=== PATIENT | female | born 1945 | race Caucasian/White ===

== ENCOUNTER 2017-07-17 20:00 | Emergency (ER) | payer OTHER ==
[~2017-07-17] VITALS: Ht 160 cm; Wt 81.7 kg
--- NOTE | ~2017-07-17 | EKG ---
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 : 1945 Requested By: Keke Arango Order Number: [id number] MD: Xavier Espinoza Measurements Intervals [place] Rate: 56 P: 14 PA: 120 QRS: 16 QRSD: 109 T: 63 QT: 533 QTc: 515 Interpretive Statements Sinus rhythm Abnormal R-wave progression, early transition Prolonged QT interval Compared to ECG 07/24/2013 09:50:04 T-wave abnormality no longer present Electronically Signed On 07-17-2017 23:29:42 DIRECTOR DIGITAL CATALOGUE by Xavier Espinoza [email or web address] <ELECTRONICALLY SIGNED> By: Xavier Espinoza MD 07/17/17 2329 01 01 Xavier Espinoza MD /EPI
[~2017-07-17 20:00] MED LIST: ASPIRIN EC81 M1 PO; CALCIUM + D3 E1 EACH PO; COZAAR 25 MG TA25 MG PO; GLUCOSAMINE1000 MG PO; HYDROCHLOROTHIA25 M1 PO; MOBIC7.5 MG PO; NAPROSYN500 MG PO; OMEGA-3 FISH O1 EAC3 PO; OSTEO BI-FLEX1 EAC1 PO; SIMVASTATIN20 MG PO; TIZANIDINE HCL4 M1 PO; VITAMIN D 5050000 I1 PO; WAL-FEX ALLERGY60 MG PO
[2017-07-17] MEDS ORDERED: VENTOLIN HFA 1818 GM INH (20:33)
[2017-07-17] MEDS ORDERED: FLOVENT HFA12 GM INH (20:33)
[2017-07-17 21:57] LABS: HEMATOCRIT 35.3 % (37.0-47.0); HEMOGLOBIN 11.6 gm/dL (12.0-15.0); MCH 30.3 pg (26.0-34.0); MCHC 32.9 g/dL (28.0-37.0); MCV 91.9 fL (80.0-100.0); RBC 3.84 mil/uL (4.20-5.00); WBC 7.2 thou/uL (4.0-11.0)
[2017-07-17 22:04] LABS: ANION GAP 7 mmol/L (7-16); BUN 13 mg/dL (7-18); CALCIUM 9.1 mg/dL (8.5-10.1); CHLORIDE 105 mmol/L (98-107); CO2 29 mmol/L (21-32); CREATININE 0.9 mg/dL (0.6-1.0); GLUCOSE 97 mg/dL (74-106); POTASSIUM 4.1 mmol/L (3.5-5.1); SODIUM 141 mmol/L (136-145)
[2017-07-17 22:09] VITALS: BP 141/59
[2017-07-17 22:14] LABS: TROPONIN-I < 0.04 ng/mL (<0.06)
[2017-07-17] MEDS ORDERED: AFRIN30 ML NASAL (22:21)
[2017-07-17] MEDS ORDERED: AUGMENTIN 875-1 EACH PO (22:21)
== END 2017-07-17 22:30 | disposition home or self-care (01) ==
LOC: ER 20:00
PROVIDERS: Physician Assistant
DX: J32.0 Chronic maxillary sinusitis (principal); I10 Essential (primary) hypertension; E78.00 Pure hypercholesterolemia, unspecified; R07.89 Other chest pain; R05 Cough; E78.5 Hyperlipidemia, unspecified; Z90.710 Acquired absence of both cervix and uterus

== ENCOUNTER → 2017-08-04 | Outpatient (CLI) | payer OTHER ==
[~2017-08-04] MED LIST changes: +AFRIN30 ML NASAL; +AUGMENTIN 875-1 EACH PO; +FLOVENT HFA12 GM INH; +VENTOLIN HFA 1818 GM INH
--- NOTE | ~2017-08-04 | 2DMMODE ---
[facility] [address] [place] [address] 2 D/M-MODE ECHOCARDIOGRAM Name: MARKELLSAADIA BOSS Room #: REG CL [facility]#: [id number] Admission: 08/04/17 Attend Phys: Jerson Aguirre Discharge: Date of : 49 Date of Service: 08/04/17 1604 Report #: [id number] THIS REPORT FOR: //name// APPROVED REPORT Study performed: 08/04/2017 14:28:09 EXAM: Comprehensive 2D, Doppler, and color-flow Echocardiogram Patient Location: Out-Patient Status: routine BSA: 1.84 HR: 61 bpm BP: 143/59 mmHg Rhythm: NSR Other Information Study Quality: Adequate Indications Chest pain, short of breath. Hx: HTN, HLP 2D Dimensions RVDd: 32.80 mm LVEF(%): 60.03 (>50%) IVSd: 11.80 (7-11mm) LVOT Diam: 19.00 (18-24mm) LVDd: 49.21 mm PWd: 11.00 (7-11mm) Ascending Ao: 28.96 (22-36mm) LVDs: 33.43 (25-40mm) Aortic Root: 29.10 mm Burton's LVEF: 60.03 % Volumes Left Atrial Volume (Systole) Single Plane 4CH: 50.09 mL Single Plane 2CH: 65.76 mL LA ESV Index: 35.00 mL/m2 Aortic Valve AoV Peak Lalo.: 1.38 m/s AO Peak Gr.: 7.57 mmHg LVOT Max P.02 mmHg LVOT Max V: 1.00 m/s HARJINDER Vmax: 2.06 cm2 Mitral Valve E/A Ratio: 1.4 MV Decel. Time: 240.14 ms [facility] [place] [address] 2 D/M-MODE ECHOCARDIOGRAM Name: SAADIA GUILLAUME Room #: REG [facility]#: [id number] Admission: 08/04/17 Attend Phys: Jerson Aguirre Discharge: Date of : 49 Date of Service: 08/04/17 1604 Report #: [id number] MV E Max Lalo.: 1.05 m/s MV A Lalo.: 0.73 m/s MV PHT: 69.64 ms IVRT: 78.43 ms Pulmonary Valve PV Peak Lalo.: 0.95 m/s PV Peak Gr.: 3.62 mmHg Tricuspid Valve TR Peak Lalo.: 3.37 m/s RAP Estimate: 5.00 mmHg TR Peak Gr.: 45.37 mmHg Left Ventricle The left ventricle is normal size. There is normal LV segmental wall motion. Wall thickness is at the upper limits of normal. Left ventricular systolic function is normal. LVEF is 55-60%. Moderate diastolic dysfunction is present (pseudonormal filling). Right Ventricle The right ventricle is normal size. The right ventricular systolic function is normal. Atria Left atrium is mildly dilated. The right atrium size is normal. Aortic Valve The aortic valve is normal in structure. No aortic regurgitation is present. There is no aortic valvular stenosis. Mitral Valve The mitral valve is normal in structure. Mild mitral regurgitation. Tricuspid Valve The tricuspid valve is normal in structure. Mild tricuspid regurgitation. Estimated PAP is 50-55mmHg. Pulmonic Valve Pulmonic valve is not well visualized. Trace pulmonic regurgitation. Great Vessels The aortic root is normal in size. The ascending aorta is normal in size. IVC is normal in size and collapses >50% with inspiration. [facility] [address] [place] [address] 2 D/M-MODE ECHOCARDIOGRAM Name: SAADIA GUILLAUME Room #: REG CL [facility]#: [id number] Admission: 08/04/17 Attend Phys: Jerson Aguirre Discharge: Date of : 49 Date of Service: 08/04/17 1604 Report #: [id number] Pericardium There is no pericardial effusion. <Conclusion> Left ventricular systolic function is normal. There is normal LV segmental wall motion. LVEF is 55-60%. Moderate diastolic dysfunction Left atrium is mildly dilated. The aortic valve is normal in structure. No aortic valvular stenosis or insufficiency. The mitral valve is normal in structure. Mild mitral regurgitation. Mild tricuspid regurgitation. Estimated pulmonary artery pressure of 50-55mmHg. There is no pericardial effusion. <ELECTRONICALLY SIGNED> By: Anup Crawford MD, FACC 08/04/17 1604 1604 160 Anup Crawford MD, FACC /INF
== END ==
LOC: CV 07:00
DX: I08.1 Rheumatic disorders of both mitral and tricuspid valves (principal); I10 Essential (primary) hypertension; E78.5 Hyperlipidemia, unspecified

== ENCOUNTER → 2017-08-17 | Outpatient (CLI) | payer OTHER | LOC: CAT 08:34 | DX: I27.20 Pulmonary hypertension, unspecified (principal) ==

== ENCOUNTER → 2018-06-26 | Outpatient (CLI) | payer OTHER ==
[2018-06-26 08:27] LABS: ABSOLUTE NEUTROPHILS 3.7 thou/uL (1.4-8.2); BASOPHILS 0.8 % (0.0-2.0); EOSINOPHILS 4.1 % (0.0-3.0); LYMPHOCYTES 27.6 % (24.0-44.0); MCHC 33.3 g/dL (28.0-37.0); MONOCYTES 8.2 % (1.0-8.0); PLATELET COUNT 242 thou/uL (150-400); POLYS 59.3 % (36.0-66.0); RBC 3.87 mil/uL (4.20-5.00); RDW 16.2 % (10.5-14.5); WBC 6.3 thou/uL (4.0-11.0)
== END ==
LOC: RAD 07:46 → LABMALL 07:46
PROVIDERS: Internal Medicine Pulmonary Disease
DX: J98.01 Acute bronchospasm (principal); J30.2 Other seasonal allergic rhinitis; R06.02 Shortness of breath; R06.00 Dyspnea, unspecified

== ENCOUNTER → 2019-04-02 | Outpatient (CLI) | payer OTHER | LOC: RAD 10:40 | DX: R06.00 Dyspnea, unspecified (principal); Z88.8 Allergy status to other drugs, medicaments and biological substances ==

== ENCOUNTER → 2019-07-14 | Emergency (ER) | payer OTHER ==
[~2019-07-14] VITALS: Ht 162.6 cm; Wt 82.6 kg
[~2019-07-14] MED LIST changes: +NORCO 5-325 TA1 EAC1 PO
[2019-07-14 20:25] VITALS: BP 150/66
[2019-07-14 22:44] LABS: HEMATOCRIT 35.3 % (37.0-47.0); HEMOGLOBIN 11.4 gm/dL (12.0-15.0); MCH 30.2 pg (26.0-34.0); MCHC 32.2 g/dL (28.0-37.0); MCV 93.9 fL (80.0-100.0); RBC 3.76 mil/uL (4.20-5.00); RDW 16.5 % (10.5-14.5); WBC 7.5 thou/uL (4.0-11.0)
[2019-07-14 22:53] LABS: CALCIUM 8.7 mg/dL (8.5-10.1); CREATININE 0.9 mg/dL (0.6-1.0); MAGNESIUM 1.9 mg/dL (1.8-2.4); POTASSIUM 3.9 mmol/L (3.5-5.1)
== END ==
LOC: ER 20:20
PROVIDERS: Physician Assistant
DX: M51.36 Other intervertebral disc degeneration, lumbar region (principal); M51.26 Other intervertebral disc displacement, lumbar region; M79.652 Pain in left thigh; M79.651 Pain in right thigh; R25.2 Cramp and spasm; I10 Essential (primary) hypertension; Z90.710 Acquired absence of both cervix and uterus

== ENCOUNTER 2020-02-03 00:24 | Emergency (ER) | payer OTHER ==
[~2020-02-03] VITALS: Ht 160 cm; Wt 85.7 kg
[2020-02-03] MEDS ORDERED: SYMBICORT160 MCG/4. INH (01:13)
[2020-02-03] MEDS ORDERED: PROAIR HFA8.5 GM INH (01:13)
[2020-02-03 01:15] LABS: ABSOLUTE NEUTROPHILS 5.2 thou/uL (1.4-8.2); BASOPHILS 0.8 % (0.0-2.0); EOSINOPHILS 1.3 % (0.0-3.0); HEMATOCRIT 36.7 % (37.0-47.0); HEMOGLOBIN 12.2 gm/dL (12.0-15.0); LYMPHOCYTES 29.3 % (24.0-44.0); MCHC 33.2 g/dL (28.0-37.0); MCV 93.2 fL (80.0-100.0); PLATELET COUNT 285 thou/uL (150-400); POLYS 59.6 % (36.0-66.0); RBC 3.94 mil/uL (4.20-5.00); RDW 16.4 % (10.5-14.5); WBC 8.7 thou/uL (4.0-11.0)
[2020-02-03] MEDS ORDERED: CO Q-10200 MG PO (01:15)
[2020-02-03] MEDS ORDERED: ASA81BEC PO (01:15)
[2020-02-03 01:17] LABS: ANION GAP 9 mmol/L (7-16); BUN 17 mg/dL (7-18); CALCIUM 9.1 mg/dL (8.5-10.1); CHLORIDE 100 mmol/L (98-107); CO2 28 mmol/L (21-32); CREATININE 0.9 mg/dL (0.6-1.0); GLUCOSE 107 mg/dL (74-106); POTASSIUM 4.6 mmol/L (3.5-5.1); SODIUM 137 mmol/L (136-145)
[2020-02-03 01:26] LABS: MAGNESIUM 1.8 mg/dL (1.8-2.4); TROPONIN-I <0.06 ng/mL (<0.06)
[2020-02-03 02:12] VITALS: BP 140/59
--- NOTE | 2020-02-03 08:07 | EKG ---
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 : 1945 Requested By: Nikhil Wheat Order Number: [id number] MD: Anup Crawford Measurements Intervals [place] Rate: 68 P: 72 [place]: 162 QRS: 12 QRSD: 94 T: 30 QT: 471 QTc: 502 Interpretive Statements Sinus rhythm Abnormal R-wave progression, early transition Nonspecific T wave abnormality Prolonged QT interval Compared to ECG 07/17/2017 22:02:49 T-wave abnormality now present Electronically Signed On 02-03-2020 8:07:16 CDT by Anup Crawford [email or web address] <ELECTRONICALLY SIGNED> By: Anup Crawford MD, [facility] 02/03/20 0807 0118 0118 Anup Crawford MD, [facility] /EPI
== END 2020-02-03 02:25 | disposition home or self-care (01) ==
LOC: ER 00:24
PROVIDERS: Emergency Medicine
DX: I10 Essential (primary) hypertension (principal); R42 Dizziness and giddiness; Z90.710 Acquired absence of both cervix and uterus; Z79.82 Long term (current) use of aspirin; Z79.899 Other long term (current) drug therapy